=== PATIENT | male | born 1985 | race Caucasian/White ===

== ENCOUNTER 2021-09-27 19:40 | Emergency (ER) | payer OTHER ==
[2021-09-27] MEDS ORDERED: Sodium Chloride 0.9% 1,000 ML IV ONE (19:41)
[2021-09-27] MEDS ORDERED: Sodium Chloride 0.9% 2.5 ML Syringe FLUSH PRN ×2 (19:41)
[2021-09-27] MEDS ORDERED: Diphtheria,Pertussis(Acell),Tetanus Vaccine 0.5 ML Syringe IM ONE (19:41)
[2021-09-27] MEDS ORDERED: Sodium Chloride 0.9% 10 ML Syringe FLUSH PRN ×2 (19:41)
[2021-09-27] MEDS ORDERED: ceFAZolin 1 GM in Premix Bag 1 BAG IV ONE (19:46)
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
[2021-09-27] MEDS ORDERED: Lidocaine 2% 5 ML SDV INJECT ONE (20:08)
[2021-09-27 20:25] LABS: BLOOD UREA NITROGEN,BUN 15 mg/dL (7.0-18.0); CARBON DIOXIDE,CO2 26.1 mmol/L (21.0-32.0); CHLORIDE,CL 103 mmol/L (98-107); GLUCOSE RANDOM 128 mg/dL (74-106); POTASSIUM,K 3.2 mmol/L (3.5-5.1); SODIUM,NA 140 mmol/L (136-148)
[2021-09-27] MEDS ORDERED: Hydrogen Peroxide 3% Top Soln 473 ML Bottle ONE (20:27)
[2021-09-27] MEDS ORDERED: Octyl 2-Cyanoacrylate 1 Tube ONE (20:29)
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
[2021-09-27] MEDS ORDERED: Octyl 2-Cyanoacrylate 1 Tube TOP ONE ×3 (20:35→23:39)
[2021-09-27] MEDS ORDERED: Hydrogen Peroxide 3% Top Soln 473 ML Bottle TOP ONE (20:36)
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
[2021-09-27 22:42] VITALS: BP 105/72; PULSE 90
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
== END 2021-09-28 00:28 | disposition home or self-care (01) ==
LOC: MW.ED 19:40
DX: S22.019A Unspecified fracture of first thoracic vertebra, initial encounter for closed fracture (principal); S01.81XA Laceration without foreign body of other part of head, initial encounter; S01.511A Laceration without foreign body of lip, initial encounter; Z23 Encounter for immunization; Z88.1 Allergy status to other antibiotic agents; V89.2XXA Person injured in unspecified motor-vehicle accident, traffic, initial encounter
CPT/HCPCS: 12004; 12013; 36415; 70450; 70486; 71045; 72125; 72128; 72131; 72170; 80053; 80305; 80307; 81001; 85025; 85610; 86850; 86900; 86901; 90471; 90715; 96365; 99285; A9270; J0690; J7030; 12011

== ENCOUNTER 2023-02-05 12:38 | Emergency (ER) | payer OTHER ==
[2023-02-05 14:42] VITALS: BP 152/92; PULSE 75
== END 2023-02-05 14:41 | disposition home or self-care (01) ==
LOC: MW.ED 12:38
DX: S29.9XXA Unspecified injury of thorax, initial encounter (principal); Z88.1 Allergy status to other antibiotic agents; V89.2XXA Person injured in unspecified motor-vehicle accident, traffic, initial encounter
CPT/HCPCS: 71101-26-RT; 71101-RT; 99283

== ENCOUNTER 2025-03-23 20:30 | Emergency (ER) | payer SELFPAY ==
[2025-03-23 20:52] VITALS: BP 172/112; PULSE 81
== END 2025-03-23 21:46 | disposition home or self-care (01) ==
LOC: MW.ED 20:30
DX: S46.102A Unspecified injury of muscle, fascia and tendon of long head of biceps, left arm, initial encounter (principal); Z75.3 Unavailability and inaccessibility of health-care facilities; Z88.8 Allergy status to other drugs, medicaments and biological substances; X50.0XXA Overexertion from strenuous movement or load, initial encounter; Y93.89 Activity, other specified
CPT/HCPCS: 99282; 99283